=== PATIENT | male | born 1975 | race Caucasian/White ===

== ENCOUNTER 2023-09-22 06:00 | Outpatient (RCR) | payer OTHER, SELFPAY | END 2023-09-30 23:59 | disposition home or self-care (01) | LOC: SPT 06:00 | PROVIDERS: PCP Electrodiagnostic Medicine; Visit Provider Electrodiagnostic Medicine | DX: M54.50 Low back pain, unspecified (principal) | CPT/HCPCS: 97161; G0283 ==

== ENCOUNTER 2023-10-01 06:00 | Outpatient (RCR) | payer OTHER, SELFPAY | END 2023-10-13 23:59 | disposition home or self-care (01) | LOC: SPT 06:00 | PROVIDERS: PCP Electrodiagnostic Medicine; Visit Provider Electrodiagnostic Medicine | DX: M54.50 Low back pain, unspecified (principal) | CPT/HCPCS: 97110 ==